=== PATIENT | female | born 1945 | race Caucasian/White ===

== ENCOUNTER 2017-07-18 06:07 | Day surgery (SDC) | payer MEDICARE ==
[~2017-07-18] VITALS: Ht 167.6 cm; Wt 57.3 kg
[~2017-07-18 06:07] MED LIST: ASCO500 PO; ASPI81CH PO; ATOR10 PO; CENTRUM COMPLE1 EACH PO; ERGO400 PO; FISH1000 PO; Ferrous Sulfat325 M2 GT; INSDET100 SC; INSULANPEN SC; JENUVIA PO; LEVSOD50 PO; LIRA0.6P SC; MAGOXI400 PO; META800 PO; METF500C PO; METF850 PO; NAPR500 PO; Prilosec Otc20 MG PO; RISE5 PO; TRAM50 PO
[2017-07-18] MEDS ORDERED: Aspirin EC81 MG (06:45)
== END 2017-07-18 12:20 | disposition home or self-care (01) ==
LOC: ORSCSDS 06:07
PROVIDERS: Orthopaedic Surgery
PROC: 0LQ14ZZ Repair Right Shoulder Tendon, Percutaneous Endoscopic Approach (ICD-10-PCS; principal; 2017-07-18 07:30)
PROC: 0LS14ZZ Reposition Right Shoulder Tendon, Percutaneous Endoscopic Approach (ICD-10-PCS; principal; 2017-07-18 07:30)
PROC: 0RNJ4ZZ Release Right Shoulder Joint, Percutaneous Endoscopic Approach (ICD-10-PCS; principal; 2017-07-18 07:30)
DX: M75.121 Complete rotator cuff tear or rupture of right shoulder, not specified as traumatic (principal); M75.41 Impingement syndrome of right shoulder; S46.111A Strain of muscle, fascia and tendon of long head of biceps, right arm, initial encounter; M75.81 Other shoulder lesions, right shoulder; E11.9 Type 2 diabetes mellitus without complications; E03.9 Hypothyroidism, unspecified; Z79.899 Other long term (current) drug therapy; Z79.4 Long term (current) use of insulin
CPT/HCPCS: 82947; C1713; J0171; J0690; J1100; J1885; J2250; J2370; J2405; J2710; J3010; J7120